=== PATIENT | female | born 1990 | race Caucasian/White ===

== ENCOUNTER 2016-07-28 00:55 | Emergency (ER) | payer OTHER ==
[2016-07-28 03:26] LABS: BASOPHIL % 1.4 % (0-2); PLATELET COUNT 196 x10^3mcL (130-400); RED CELL DISTRIBUTION WIDTH 11.7 % (11.5-14.5)
[2016-07-28 03:44] LABS: CALCIUM 8.8 mg/dL (8.5-10.1); CARBON DIOXIDE 25.8 mmol/L (21-32); CHLORIDE SERUM 100 mmol/L (98-107); CREATININE SERUM 0.7 mg/dL (0.6-1.0); GFR1 > 60 mL/min; GLUCOSE SERUM 110 mg/dL (74-106); POTASSIUM SERUM 3.8 mmol/L (3.5-5.1); SODIUM SERUM 139 mmol/L (136-145)
[2016-07-28 03:56] LABS: ALBUMIN 3.9 g/dL (3.4-5.0); ALKALINE PHOSPHATASE 89 U/L (46-116); ALT/SGPT 31 U/L (14-59); AST/SGOT 20 U/L (15-37); BILIRUBIN TOTAL 0.5 mg/dL (0.20-1.00); LIPASE 118 IU/L (73-393); TOTAL PROTEIN, SERUM 7.6 g/dL (6.4-8.2)
[2016-07-28 04:30] VITALS: BP 121/93
== END 2016-07-28 04:30 | disposition home or self-care (01) ==
LOC: ED 00:55
PROVIDERS: Emergency Medicine
DX: K80.70 Calculus of gallbladder and bile duct without cholecystitis without obstruction (principal); Z79.3 Long term (current) use of hormonal contraceptives
CPT/HCPCS: J1885

== ENCOUNTER 2017-07-04 10:57 | Emergency (ER) | payer OTHER ==
[~2017-07-04] VITALS: Ht 160 cm; Wt 62.1 kg
[2017-07-04 11:13] VITALS: Ht 160 cm; Wt 62.1 kg
[2017-07-04 12:24] LABS: BASOPHIL % 0.3 % (0-2); PLATELET COUNT 191 x10^3mcL (130-400); RED CELL DISTRIBUTION WIDTH 12.8 % (11.5-14.5)
[2017-07-04 12:33] LABS: CALCIUM 8.8 mg/dL (8.5-10.1); CARBON DIOXIDE 25.3 mmol/L (21-32); CHLORIDE SERUM 107 mmol/L (98-107); CREATININE SERUM 0.7 mg/dL (0.6-1.0); GFR1 > 60 mL/min; GLUCOSE SERUM 97 mg/dL (74-106); POTASSIUM SERUM 3.8 mmol/L (3.5-5.1); SODIUM SERUM 140 mmol/L (136-145)
[2017-07-04 12:38] LABS: ALBUMIN 4.1 g/dL (3.4-5.0); ALKALINE PHOSPHATASE 71 U/L (46-116); ALT/SGPT 21 U/L (14-59); AMYLASE 34 U/L (25-115); AST/SGOT 16 U/L (15-37); BILIRUBIN TOTAL 0.5 mg/dL (0.20-1.00); LIPASE 65 IU/L (73-393); TOTAL PROTEIN, SERUM 8.2 g/dL (6.4-8.2)
[2017-07-04 12:41] LABS: UA SPECIFIC GRAVITY 1.025 (1.005-1.035); microscopic required? YES; urine erythrocyte TRACE (NEGATIVE)
[2017-07-04 13:57] VITALS: BP 131/78
== END 2017-07-04 13:57 | disposition home or self-care (01) ==
LOC: ED 10:57
PROVIDERS: Emergency Medicine
DX: K80.20 Calculus of gallbladder without cholecystitis without obstruction (principal)
CPT/HCPCS: J1885; J2405; Q0092

== ENCOUNTER 2017-07-05 18:23 | Emergency (ER) | payer OTHER ==
[~2017-07-05] VITALS: Ht 157.5 cm; Wt 61.7 kg
[2017-07-05 18:25] VITALS: Ht 157.5 cm; Wt 61.7 kg
[2017-07-05 19:03] LABS: BASOPHIL % 0.9 % (0-2); PLATELET COUNT 210 x10^3mcL (130-400); RED CELL DISTRIBUTION WIDTH 12.7 % (11.5-14.5)
[2017-07-05 19:09] LABS: CALCIUM 9.3 mg/dL (8.5-10.1); CARBON DIOXIDE 29.2 mmol/L (21-32); CHLORIDE SERUM 103 mmol/L (98-107); CREATININE SERUM 0.8 mg/dL (0.6-1.0); GFR1 > 60 mL/min; GLUCOSE SERUM 103 mg/dL (74-106); SODIUM SERUM 140 mmol/L (136-145)
[2017-07-05 19:13] LABS: ALBUMIN 4.4 g/dL (3.4-5.0); ALKALINE PHOSPHATASE 74 U/L (46-116); ALT/SGPT 21 U/L (14-59); AMYLASE 38 U/L (25-115); AST/SGOT 14 U/L (15-37); BILIRUBIN TOTAL 0.6 mg/dL (0.20-1.00); LIPASE 66 IU/L (73-393)
[2017-07-05 19:14] LABS: TOTAL PROTEIN, SERUM 8.6 g/dL (6.4-8.2)
[2017-07-05 20:13] VITALS: BP 104/70
== END 2017-07-05 20:13 | disposition home or self-care (01) ==
LOC: ED 18:23
PROVIDERS: Specialist
DX: K80.20 Calculus of gallbladder without cholecystitis without obstruction (principal); N39.0 Urinary tract infection, site not specified
CPT/HCPCS: 36415; 83880; J1885; J3010; Q0162

== ENCOUNTER 2017-08-25 18:33 | Emergency (ER) | payer OTHER ==
[~2017-08-25] VITALS: Ht 160 cm; Wt 58.7 kg
[2017-08-25 18:46] VITALS: Ht 160 cm; Wt 58.7 kg
[2017-08-25 19:21] LABS: microscopic required? YES; urine erythrocyte NEGATIVE (NEGATIVE)
[2017-08-25 19:27] LABS: BASOPHIL % 0 % (0-2); PLATELET COUNT 176 x10^3mcL (130-400); RED CELL DISTRIBUTION WIDTH 12.8 % (11.5-14.5)
[2017-08-25 19:31] LABS: CARBON DIOXIDE 28.6 mmol/L (21-32); CHLORIDE SERUM 104 mmol/L (98-107); CREATININE SERUM 0.9 mg/dL (0.6-1.0); GFR1 > 60 mL/min; GLUCOSE SERUM 117 mg/dL (74-106); POTASSIUM SERUM 3.5 mmol/L (3.5-5.1); SODIUM SERUM 142 mmol/L (136-145)
[2017-08-25 19:36] LABS: ALBUMIN 4.1 g/dL (3.4-5.0); ALKALINE PHOSPHATASE 190 U/L (46-116); ALT/SGPT 229 U/L (14-59); AST/SGOT 197 U/L (15-37); BILIRUBIN TOTAL 1.9 mg/dL (0.20-1.00); LIPASE 114 IU/L (73-393); TOTAL PROTEIN, SERUM 8.1 g/dL (6.4-8.2)
[2017-08-26 02:14] LABS: AMPHETAMINE QUAL UR NONE DETECTED (See below)
[2017-08-26 02:26] LABS: CHOLESTEROL/HDL RATIO 3.8; MAGNESIUM 2.1 mg/dL (1.8-2.4); PHOSPHOROUS 3.7 mg/dL (2.5-4.9)
[2017-08-26 02:33] LABS: FREE T4 1.49 ng/dL (0.76-1.46); FREE THYROXINE INDEX 3.6 ug/dL (1.4-4.5); T4(THYROXINE) 11.4 ug/dL (4.7-13.3)
[2017-08-26 03:02] LABS: T3 TOTAL 1.21 ng/mL
[2017-08-26 04:59] LABS: BASOPHIL % 0.2 % (0-2); PLATELET COUNT 131 x10^3mcL (130-400); RED CELL DISTRIBUTION WIDTH 12.6 % (11.5-14.5)
[2017-08-26 05:07] LABS: CARBON DIOXIDE 23.5 mmol/L (21-32); CHLORIDE SERUM 108 mmol/L (98-107); CREATININE SERUM 0.7 mg/dL (0.6-1.0); GFR1 > 60 mL/min; GLUCOSE SERUM 132 mg/dL (74-106); MAGNESIUM 1.8 mg/dL (1.8-2.4); PHOSPHOROUS 3.6 mg/dL (2.5-4.9); POTASSIUM SERUM 3.4 mmol/L (3.5-5.1); SODIUM SERUM 139 mmol/L (136-145)
[2017-08-26 06:40] VITALS: BP 96/64
== END 2017-08-26 06:40 | disposition short-term general hospital (02) ==
LOC: ED 18:33 → DU 08-26 01:25 → ED 08-26 01:25
PROVIDERS: Emergency Medicine; Family Medicine
DX: A41.9 Sepsis, unspecified organism (principal); B17.9 Acute viral hepatitis, unspecified; R65.20 Severe sepsis without septic shock; Z90.49 Acquired absence of other specified parts of digestive tract
CPT/HCPCS: 83880; 84439; J0696; J1885; J2270; J2405; J2543; J3490; J7030; Q0092; Q9967

== ENCOUNTER 2017-10-01 17:10 | Emergency (ER) | payer OTHER ==
[~2017-10-01] VITALS: Ht 160 cm; Wt 59.4 kg
[2017-10-01 17:31] VITALS: Ht 160 cm; Wt 59.4 kg
[2017-10-01 18:51] VITALS: BP 123/79
== END 2017-10-01 18:51 | disposition home or self-care (01) ==
LOC: ED 17:10
DX: K21.9 Gastro-esophageal reflux disease without esophagitis (principal); Z90.49 Acquired absence of other specified parts of digestive tract
CPT/HCPCS: J1885

== ENCOUNTER 2018-01-01 18:19 | Emergency (ER) | payer OTHER ==
[~2018-01-01] VITALS: Ht 160 cm; Wt 60.5 kg
[2018-01-01 20:01] VITALS: BP 115/71
== END 2018-01-01 20:01 | disposition home or self-care (01) ==
LOC: ED 18:19
DX: R20.2 Paresthesia of skin (principal); K21.9 Gastro-esophageal reflux disease without esophagitis